=== PATIENT | female | born 1990 | race Caucasian/White ===

== ENCOUNTER 2017-09-06 13:31 | Emergency (ER) | payer OTHER ==
[~2017-09-06] VITALS: Ht 160 cm; Wt 97.1 kg
[~2017-09-06 13:31] MED LIST: PROTONIX40 MG PO; ZANTAC150 MG PO
== END 2017-09-06 20:11 | disposition home or self-care (01) ==
LOC: ER 13:31
DX: T78.1XXA Other adverse food reactions, not elsewhere classified, initial encounter (principal); R21 Rash and other nonspecific skin eruption

== ENCOUNTER 2018-07-11 09:06 | Outpatient (CLI) | payer OTHER | END 2018-07-11 09:34 | disposition home or self-care (01) | LOC: SONOGRAMA 09:06 → MAMO-SONO 09:15 → SONOGRAMA 09:34 | DX: Z34.02 Encounter for supervision of normal first pregnancy, second trimester (principal) ==

== ENCOUNTER 2018-09-29 15:01 | Inpatient (IN) | payer OTHER ==
[~2018-09-29] VITALS: Ht 160 cm; Wt 98.4 kg
[2018-09-29] MEDS ORDERED: PRENATAL TABLE1 EAC1 PO (17:31)
[2018-10-25] MEDS ORDERED: LABETALOL HCL200 MG PO ×2 (10:56)
[2018-10-25] MEDS ORDERED: CODE1TAB37 PO ×2 (10:57)
== END 2018-10-03 11:23 | disposition home or self-care (01) | DRG 833 ==
LOC: OB/GYN 15:01 → LDR 15:01 → OB/GYN 09-30 10:47
PROVIDERS: ADMIT Obstetrics & Gynecology
PROC: 4A0HXFZ Measurement of Products of Conception, Cardiac Rhythm, External Approach (ICD-10-PCS; principal; 2018-09-29)
DX: O13.3 Gestational [pregnancy-induced] hypertension without significant proteinuria, third trimester (principal); Z3A.30 30 weeks gestation of pregnancy

== ENCOUNTER 2018-10-19 13:31 | Inpatient (IN) | payer OTHER ==
[~2018-10-19] VITALS: Ht 160 cm; Wt 101.2 kg
[~2018-10-19 13:31] MED LIST changes: +PRENATAL TABLE1 EAC1 PO
[2018-10-25] MEDS ORDERED: LABETALOL HCL200 MG PO (10:56)
[2018-10-25] MEDS ORDERED: CODE1TAB37 PO (10:57)
== END 2018-10-25 16:00 | disposition home or self-care (01) | DRG 786 ==
LOC: LDR 13:31 → OB/GYN 10-23 10:26
PROVIDERS: ADMIT Obstetrics & Gynecology
PROC: BY4FZZZ Ultrasonography of Third Trimester, Single Fetus (ICD-10-PCS; 2018-10-19)
PROC: 4A1HXCZ Monitoring of Products of Conception, Cardiac Rate, External Approach (ICD-10-PCS; 2018-10-19)
PROC: 10D00Z1 Extraction of Products of Conception, Low, Open Approach (ICD-10-PCS; principal; 2018-10-21 17:00)
DX: O82 Encounter for cesarean delivery without indication (principal); O60.14X0 Preterm labor third trimester with preterm delivery third trimester, not applicable or unspecified; O14.14 Severe pre-eclampsia complicating childbirth; Z3A.33 33 weeks gestation of pregnancy; Z37.0 Single live birth

== ENCOUNTER 2019-01-15 11:01 | Emergency (ER) | payer OTHER ==
[~2019-01-15] VITALS: Ht 160 cm; Wt 94.8 kg
[~2019-01-15 11:01] MED LIST changes: +CODE1TAB37 PO; +LABETALOL HCL200 MG PO
[2019-01-15] MEDS ORDERED: OBSTETRIX DHA1 EACH (11:53)
== END 2019-01-15 13:02 | disposition home or self-care (01) ==
LOC: ER 11:01
DX: S13.4XXA Sprain of ligaments of cervical spine, initial encounter (principal); S30.0XXA Contusion of lower back and pelvis, initial encounter; V49.9XXA Car occupant (driver) (passenger) injured in unspecified traffic accident, initial encounter; Y93.89 Activity, other specified; Y92.488 Other paved roadways as the place of occurrence of the external cause; Y99.8 Other external cause status

== ENCOUNTER 2021-12-03 23:22 | Emergency (ER) | payer OTHER ==
[~2021-12-03] VITALS: Ht 160 cm; Wt 99.8 kg
[~2021-12-03 23:22] MED LIST changes: +OBSTETRIX DHA1 EACH
[2021-12-04] MEDS ORDERED: HYDRODIURIL12.5 MG (00:44)
== END 2021-12-04 05:55 | disposition home or self-care (01) ==
LOC: ER 23:22
DX: U07.1 COVID-19 (principal); J06.9 Acute upper respiratory infection, unspecified; Z88.8 Allergy status to other drugs, medicaments and biological substances

== ENCOUNTER 2022-02-21 15:08 | Outpatient (CLI) | payer OTHER ==
[~2022-02-21 15:08] MED LIST changes: +HYDRODIURIL12.5 MG
== END 2022-02-21 17:11 | disposition home or self-care (01) ==
LOC: PRENATAL 15:08
PROVIDERS: ATTEND Obstetrics & Gynecology Maternal & Fetal Medicine
DX: O35.9XX0 Maternal care for (suspected) fetal abnormality and damage, unspecified, not applicable or unspecified (principal); O10.019 Pre-existing essential hypertension complicating pregnancy, unspecified trimester; O34.219 Maternal care for unspecified type scar from previous cesarean delivery; O14.90 Unspecified pre-eclampsia, unspecified trimester; O99.210 Obesity complicating pregnancy, unspecified trimester; Z3A.21 21 weeks gestation of pregnancy

== ENCOUNTER 2022-04-09 11:04 | Outpatient (CLI) | payer OTHER | END 2022-04-09 13:25 | disposition home or self-care (01) | LOC: PRENATAL 11:04 | PROVIDERS: ATTEND Obstetrics & Gynecology Maternal & Fetal Medicine | DX: O26.849 Uterine size-date discrepancy, unspecified trimester (principal); O10.019 Pre-existing essential hypertension complicating pregnancy, unspecified trimester; O34.219 Maternal care for unspecified type scar from previous cesarean delivery; Z3A.28 28 weeks gestation of pregnancy ==

== ENCOUNTER 2022-05-30 15:06 | Outpatient (CLI) | payer OTHER | END 2022-05-30 17:15 | disposition home or self-care (01) | LOC: PRENATAL 15:06 | PROVIDERS: ATTEND Obstetrics & Gynecology Maternal & Fetal Medicine | DX: O26.849 Uterine size-date discrepancy, unspecified trimester (principal); O34.219 Maternal care for unspecified type scar from previous cesarean delivery; O36.8199 Decreased fetal movements, unspecified trimester, other fetus; O14.90 Unspecified pre-eclampsia, unspecified trimester; O99.210 Obesity complicating pregnancy, unspecified trimester; Z3A.35 35 weeks gestation of pregnancy ==

== ENCOUNTER 2022-06-03 14:35 | Outpatient (CLI) | payer OTHER | END 2022-06-03 16:40 | disposition home or self-care (01) | LOC: NST 14:35 | PROVIDERS: ATTEND Obstetrics & Gynecology | DX: Z34.83 Encounter for supervision of other normal pregnancy, third trimester (principal) ==